=== PATIENT | male | born 1975 | race Caucasian/White ===

== ENCOUNTER 2017-11-21 11:31 | Emergency (ER) | payer BC ==
[~2017-11-21] VITALS: Ht 175.3 cm; Wt 79.4 kg
[2017-11-21] MEDS ORDERED: TETANUS/DIPHTHERIA TOX ADULT 0.5 ML SYR IM ONE (12:00)
== END 2017-11-21 12:23 | disposition home or self-care (01) ==
LOC: ER 11:31
DX: L02.413 Cutaneous abscess of right upper limb (principal)
CPT/HCPCS: 90714; 99282

== ENCOUNTER 2017-11-27 22:26 | Emergency (ER) | payer BC ==
[~2017-11-27] VITALS: Ht 175.3 cm; Wt 79.4 kg
[2017-11-27] MEDS ORDERED: METHYLPREDNISOLONE SOD SUCC 125 MG/2ML VIAL IM ONE (22:45)
[2017-11-27] MEDS ORDERED: FAMOTIDINE 20 MG TAB PO ONE (22:45)
[2017-11-27 23:44] VITALS: BP 108/74
== END 2017-11-27 23:51 | disposition home or self-care (01) ==
LOC: ER 22:26
DX: T78.40XA Allergy, unspecified, initial encounter (principal); L50.0 Allergic urticaria
CPT/HCPCS: 96372; 99283; J2930